=== PATIENT | female | born 1985 | race Caucasian/White ===

== ENCOUNTER 2017-08-15 20:13 | Emergency (ER) | payer OTHER ==
[~2017-08-15] VITALS: Ht 154.9 cm; Wt 68.0 kg
[2017-08-15] MEDS ORDERED: IBUPROFEN 800 MG TABLET PO ONE (21:15)
[2017-08-15 21:48] VITALS: BP 126/63
== END 2017-08-15 21:50 | disposition home or self-care (01) ==
LOC: EMS 20:16
DX: M54.2 Cervicalgia (principal); V43.52XA Car driver injured in collision with other type car in traffic accident, initial encounter; Y93.89 Activity, other specified; Y92.89 Other specified places as the place of occurrence of the external cause; Y99.8 Other external cause status
CPT/HCPCS: 99282

== ENCOUNTER 2018-10-06 10:59 | Emergency (ER) | payer OTHER ==
[~2018-10-06] VITALS: Ht 154.9 cm; Wt 70.5 kg
[2018-10-06] MEDS ORDERED: BACITRACIN 0.9 GM PACKET OINTMENT TP ONE (12:30)
[2018-10-06 13:04] VITALS: BP 144/77
== END 2018-10-06 13:26 | disposition home or self-care (01) ==
LOC: EMS 11:00
DX: S01.301A Unspecified open wound of right ear, initial encounter (principal); G43.909 Migraine, unspecified, not intractable, without status migrainosus; F41.9 Anxiety disorder, unspecified; W57.XXXA Bitten or stung by nonvenomous insect and other nonvenomous arthropods, initial encounter; Y93.89 Activity, other specified; Y92.89 Other specified places as the place of occurrence of the external cause; Y99.8 Other external cause status

== ENCOUNTER 2018-11-01 18:35 | Emergency (ER) | payer OTHER ==
[~2018-11-01] VITALS: Ht 152.4 cm; Wt 68.2 kg
[2018-11-01 18:40] VITALS: BP 137/91
== END 2018-11-01 21:22 | disposition home or self-care (01) ==
LOC: EMS 18:36
DX: S63.91XA Sprain of unspecified part of right wrist and hand, initial encounter (principal); F41.9 Anxiety disorder, unspecified; G43.909 Migraine, unspecified, not intractable, without status migrainosus; X58.XXXA Exposure to other specified factors, initial encounter; Y93.89 Activity, other specified; Y92.89 Other specified places as the place of occurrence of the external cause; Y99.8 Other external cause status

== ENCOUNTER 2020-06-24 12:24 | Emergency (ER) | payer OTHER ==
[~2020-06-24] VITALS: Ht 154.9 cm; Wt 65.9 kg
[2020-06-24] MEDS ORDERED: [UNRECOGNIZED DRUG - CODE] PO (12:28)
[2020-06-24 14:56] LABS: COVID AG,FIA SOURCE NASOPHARYNGEAL
[2020-06-24 15:54] VITALS: BP 129/88
== END 2020-06-24 15:55 | disposition home or self-care (01) ==
LOC: EMS 12:25
DX: J40 Bronchitis, not specified as acute or chronic (principal); Z20.828 Contact with and (suspected) exposure to other viral communicable diseases
CPT/HCPCS: 71045; 87426; 99284; U0003

== ENCOUNTER 2021-02-16 19:59 | Emergency (ER) | payer OTHER ==
[~2021-02-16] VITALS: Ht 152.4 cm; Wt 63.6 kg
[~2021-02-16 19:59] MED LIST: [UNRECOGNIZED DRUG - CODE] PO
[2021-02-16] MEDS ORDERED: DEXAMETHASONE SOD PHOS 4 MG/ML 5 ML VIAL IM ONE (21:15)
[2021-02-16] MEDS ORDERED: IBUPROFEN 600 MG TABLET PO ONE (21:15)
[2021-02-16 21:35] VITALS: BP 147/79
== END 2021-02-16 21:51 | disposition home or self-care (01) ==
LOC: EMS 19:59
DX: J02.8 Acute pharyngitis due to other specified organisms (principal); B97.89 Other viral agents as the cause of diseases classified elsewhere
CPT/HCPCS: 96372; 99283; J1100

== ENCOUNTER 2021-02-26 08:24 | Emergency (ER) | payer OTHER ==
[~2021-02-26] VITALS: Ht 152.4 cm; Wt 135.0 kg
[2021-02-26 09:57] VITALS: BP 128/86
== END 2021-02-26 10:03 | disposition home or self-care (01) ==
LOC: EMS 08:28
DX: J02.8 Acute pharyngitis due to other specified organisms (principal); I88.9 Nonspecific lymphadenitis, unspecified; B97.89 Other viral agents as the cause of diseases classified elsewhere
CPT/HCPCS: 99282; Z7502

== ENCOUNTER 2021-03-27 11:11 | Emergency (ER) | payer OTHER ==
[~2021-03-27] VITALS: Ht 154.9 cm; Wt 59.1 kg
[2021-03-27] MEDS ORDERED: PERTUSS(ACELL),DIPH,TET VAC/PF 0.5 ML SYRINGE IM. ONE (12:30)
[2021-03-27] MEDS ORDERED: IBUPROFEN 400 MG TABLET PO ONE (12:30)
[2021-03-27] MEDS ORDERED: SULFAMETHOX/TRIMETH DS 800-160 MG/TABLET PO ONE (12:30)
[2021-03-27 13:20] VITALS: BP 128/87
== END 2021-03-27 14:00 | disposition home or self-care (01) ==
LOC: EMS 11:14
DX: S61.012A Laceration without foreign body of left thumb without damage to nail, initial encounter (principal); W26.8XXA Contact with other sharp object(s), not elsewhere classified, initial encounter; Y93.89 Activity, other specified; Y92.89 Other specified places as the place of occurrence of the external cause; Y99.8 Other external cause status
CPT/HCPCS: 12001; 90471; 90715; 99283

== ENCOUNTER 2021-03-30 17:17 | Emergency (ER) | payer OTHER ==
[~2021-03-30] VITALS: Ht 152.4 cm; Wt 63.6 kg
[2021-03-30 17:19] VITALS: BP 134/72
== END 2021-03-30 18:32 | disposition home or self-care (01) ==
LOC: EMS 17:21
DX: S61.012D Laceration without foreign body of left thumb without damage to nail, subsequent encounter (principal); X58.XXXD Exposure to other specified factors, subsequent encounter
CPT/HCPCS: 99282; Z7502